=== PATIENT | female | born 1975 | race Caucasian/White ===

== ENCOUNTER → 2020-09-26 | Outpatient (CLI) | payer BC ==
[~2020-09-26] MED LIST: DITROPAN 5 MG TA5 MG PO; DOCUSATE SODIU250 MG PO; FLONASE ALLER15.8 ML; HYDROCODONE-AC1 EACH PO; IBUPROFEN600 MG PO; LISINOPRIL10 MG PO; MULTIVITAMIN1 EACH PO; NURTEC ODT75 MG PO; PEPCID20 MG PO
[2020-09-26 10:01] LABS: HEMOGLOBIN 13.7 gm/dl (12.3-15.3); RED BLOOD COUNT 4.61 M/UL (4.00-5.10); WHITE BLOOD COUNT 5.2 K/UL (4.5-11.0)
== END ==
LOC: OPSV2 09:00
PROVIDERS: Obstetrics & Gynecology
DX: Z01.818 Encounter for other preprocedural examination (principal); N93.9 Abnormal uterine and vaginal bleeding, unspecified; D25.9 Leiomyoma of uterus, unspecified; N92.6 Irregular menstruation, unspecified; R94.31 Abnormal electrocardiogram [ECG] [EKG]; I44.7 Left bundle-branch block, unspecified
CPT/HCPCS: 36415; 80048; 81001; 85025; 93005

== ENCOUNTER → 2020-10-30 | Outpatient (CLI) | payer BC | LOC: ECHO 08:38 → NM 10:00 | DX: I44.7 Left bundle-branch block, unspecified (principal); R94.39 Abnormal result of other cardiovascular function study; I27.20 Pulmonary hypertension, unspecified; R93.1 Abnormal findings on diagnostic imaging of heart and coronary circulation; I07.1 Rheumatic tricuspid insufficiency | CPT/HCPCS: ECHO; 78452; 93306; A9502; J2785 ==

== ENCOUNTER → 2020-12-20 | Outpatient (CLI) | payer BC ==
[2020-12-20 11:47] LABS: HEMOGLOBIN 12.3 gm/dl (12.3-15.3); RED BLOOD COUNT 4.26 M/UL (4.00-5.10); WHITE BLOOD COUNT 3.8 K/UL (4.5-11.0)
== END ==
LOC: OPSV2 10:00
PROVIDERS: Obstetrics & Gynecology
DX: Z01.818 Encounter for other preprocedural examination (principal)
CPT/HCPCS: 36415; 80048; 81001; 85025; 93005

== ENCOUNTER 2020-12-28 06:34 | Day surgery (SDC) | payer BC ==
[~2020-12-28] VITALS: Ht 160 cm; Wt 68.0 kg
[2020-12-28] MEDS ORDERED: LISINOPRIL10 MG PO ×2 (07:19→07:20)
[2020-12-28] MEDS ORDERED: NURTEC ODT75 MG PO (07:21)
[2020-12-28] MEDS ORDERED: PEPCID20 MG PO (07:22)
[2020-12-28] MEDS ORDERED: MULTIVITAMIN1 EACH PO (07:23)
[2020-12-28] MEDS ORDERED: FLONASE ALLER15.8 ML (07:26)
[2020-12-28] MEDS ORDERED: DOCUSATE SODIU250 MG PO (09:38)
[2020-12-28] MEDS ORDERED: IBUPROFEN600 MG PO (09:38)
[2020-12-28] MEDS ORDERED: HYDROCODONE-AC1 EACH PO (09:38)
[2020-12-28] MEDS ORDERED: DITROPAN 5 MG TA5 MG PO (09:38)
== END 2020-12-28 20:08 | disposition home or self-care (01) ==
LOC: OR 06:34 → MED SURG 4 13:20 → OR 20:08
DX: D25.9 Leiomyoma of uterus, unspecified (principal); N80.0 Endometriosis of uterus; N83.8 Other noninflammatory disorders of ovary, fallopian tube and broad ligament; I12.9 Hypertensive chronic kidney disease with stage 1 through stage 4 chronic kidney disease, or unspecified chronic kidney disease; N18.30 Chronic kidney disease, stage 3 unspecified; D63.1 Anemia in chronic kidney disease; G43.909 Migraine, unspecified, not intractable, without status migrainosus; K21.9 Gastro-esophageal reflux disease without esophagitis; Z88.5 Allergy status to narcotic agent; Z88.1 Allergy status to other antibiotic agents; Z88.8 Allergy status to other drugs, medicaments and biological substances; Z79.899 Other long term (current) drug therapy
CPT/HCPCS: 84703; C1769; J1100; J1580; J1885; J2001; J2250; J2405; J2704; J2710; J3010; J7120

== ENCOUNTER → 2022-01-08 | Outpatient (CLI) | payer OTHER ==
[~2022-01-08] MED LIST changes: +AMLODIPINE BES2.5 MG PO; +PROPRANOLOL HCL60 MG PO; +RIZATRIPTAN10 MG PO; +VITAMIN B-122500 MCG PO; +VITAMIN D350 MCG PO
[2022-01-08 08:08] LABS: HEMOGLOBIN 11.7 gm/dl (12.3-15.3); RED BLOOD COUNT 4.21 M/UL (4.00-5.10); WHITE BLOOD COUNT 5.6 K/UL (4.5-11.0)
== END ==
LOC: LAB 07:44
PROVIDERS: Internal Medicine Nephrology
DX: N18.4 Chronic kidney disease, stage 4 (severe) (principal)
CPT/HCPCS: 36415; 85025; 85610; 85730

== ENCOUNTER → 2022-01-10 | Outpatient (CLI) | payer OTHER ==
[2022-01-10 14:03] LABS: HEMOGLOBIN 11.3 gm/dl (12.3-15.3); RED BLOOD COUNT 4.06 M/UL (4.00-5.10); WHITE BLOOD COUNT 6.7 K/UL (4.5-11.0)
== END ==
LOC: CT 06:34
PROVIDERS: Internal Medicine Nephrology
DX: N18.4 Chronic kidney disease, stage 4 (severe) (principal); N26.1 Atrophy of kidney (terminal); N26.9 Renal sclerosis, unspecified; Z79.899 Other long term (current) drug therapy
CPT/HCPCS: 74150; 77012; 85027; 88305; 88313; 88346; 88348; J7050